=== PATIENT | female | born 1965 | race Caucasian/White ===

== ENCOUNTER 2018-10-02 01:50 | Outpatient (CLI) | payer BC, SELFPAY ==
--- NOTE | 2018-10-02 10:15 | DI.MAMMO_ITS ---
SYMPTOM/DIAGNOSIS: SCREENING, Z12.31 MAMMOGRAMS: Mammograms were interpreted according to the usual protocol including computer analysis with CAD system, tomosynthesis and C view imaging. Comparison is made with exams from 1257-3609. The breasts are composed of heterogeneously dense fibroglandular tissue, breast density, Category C. No suspicious masses or suspicious microcalcifications are seen. There has been no significant change. IMPRESSION: Category 1, negative mammogram. Yearly screening mammography is recommended. [facility] ASSESSMENT OF FINDINGS: Negative. Category 1. Patient will receive a letter notifying them of these results. Bi-RADS category C. The breasts are heterogeneously dense, which may obscure small masses.
== END 2018-10-02 02:10 ==
PROVIDERS: PCP Emergency Medicine; Visit Provider Emergency Medicine
DX: Z12.31 Encounter for screening mammogram for malignant neoplasm of breast (principal)
CPT/HCPCS: 77063; 77067

== ENCOUNTER 2019-10-09 07:59 | Outpatient (CLI) | payer BC, SELFPAY ==
[2019-10-12 18:38] LABS: SARS-CoV-2 RNA Undetected (Undetected); SARS-CoV-2 Specimen Source Nasopharynx
== END 2019-10-09 08:19 ==
PROVIDERS: PCP Emergency Medicine; Visit Provider Emergency Medicine
DX: Z11.59 Encounter for screening for other viral diseases (principal)
CPT/HCPCS: U0003

== ENCOUNTER 2020-07-09 03:17 | Outpatient (CLI) | payer BC, SELFPAY ==
[2020-07-09 12:51] LABS: Abs Immature Grans 0.01 10^3/uL (0.0-0.06); Absolute Basophil Count 0.02 10^3/uL (0.0-0.2); Absolute Eosinophil Count 0.15 10^3/uL (0.0-0.7); Absolute Lymphocyte Count 2.08 10^3/uL (1.2-3.4); Absolute Monocyte Count 0.44 10^3/uL (0.1-0.8); Absolute Neutrophil Count 3.72 10^3/uL (1.2-6.7); Basophils % 0.3; Eosinophils % 2.3; HCT 42.1 % (36.0-46.0); Immature Grans % 0.2; Lymphocytes % 32.4; MCH 31.2 pg (27.0-33.0); MCHC 33.3 % (32.0-36.0); MCV 93.8 fL (80-95); MPV 10.1 fL (8.0-11.0); Monocytes % 6.9; Neutrophils % 57.9; Nucleated RBC 0 %; Platelet Count 365 10^3/uL (130-400); RBC 4.49 10^6/uL (3.93-5.22); RDW 12.4 % (11.7-14.6); RDW-SD 42.7 fL; WBC 6.42 10^3/uL (4.4-10.8)
[2020-07-09 13:08] LABS: Anion Gap 5.5 mmol/L (3-11); BUN 17 mg/dL (7-18); CO2 28.5 mmol/L (21.0-32.0); CREATININE 0.8 mg/dL (0.55-1.02); Calcium 9.2 mg/dL (8.5-10.1); Calculated LDL 216 mg/dL (<100); Chloride 103 mmol/L (98-107); Cholesterol 310 mg/dL (<200); Glucose 115 mg/dL (74-106); HDL Cholesterol 57 mg/dL (40-60); Potassium 4.2 mmol/L (3.5-5.1); Sodium 137 mmol/L (136-145); TSH (W/Ref FT4) 2.85 uIU/mL (0.36-3.74); Triglyceride 187 mg/dL (<150)
[2020-07-09 13:11] LABS: Hemoglobin A1C 5.6 % (<5.7)
== END 2020-07-09 03:18 | disposition home or self-care (01) ==
LOC: LOS 03:18
PROVIDERS: Physician Assistant; PCP Emergency Medicine; Visit Provider Nurse Practitioner Family
DX: R63.5 Abnormal weight gain (principal)
CPT/HCPCS: 36415; 80048; 80061; 83036; 84443; 85025

== ENCOUNTER 2020-07-21 02:06 | Outpatient (CLI) | payer BC, SELFPAY ==
--- NOTE | 2020-07-21 16:23 | DI.MAMMO_ITS ---
EXAM: MG MAMMO SCREENING CLINICAL HISTORY: screening.Z12.39. TECHNIQUE: Bilateral full field digital CC and MLO mammographic images were obtained with 3D tomosyn thesis and utilizing computer aided detection (CAD). COMPARISON: Prior mammograms dating back to 2011, the most recent being September 2018. FINDINGS: There are no new spiculated masses nor malignant appearing microcalcification groups. There is no significant architectural distortion nor skin thickening-retraction. IMPRESSION: No radiographic evidence of malignancy. BI-RADS Category 1 - Negative Breast Density - Category B - Scattered areas of fibroglandular density Breast density Category C or D implies that the patient has dense breast tissue. Dense breast tissue can make it harder to find cancer on a mammogram. Dense breast tissue is also associated with an incr eased risk of breast cancer. This information about the result of the mammogram report was provided to the patient to raise their awareness. Use this report when you speak with the patient about their risks for breast cancer, which includes their family history. At that time, you may recommend additional screening tests (Ultrasoun d or MRI) as these tests may add significant information. A negative radiographic report should not delay biopsy if a dominant or clinically suspicious mass is present. Up to ten percent of cancers are not identified on mammography. A negative report may reinforce clinical impression. Adenosis and dense breasts may obscure an underlying neoplasm. False positive reports average 6 to 10%. Patient will receive a letter notifying them of these results.
== END 2020-07-21 02:26 ==
PROVIDERS: PCP Emergency Medicine; Visit Provider Nurse Practitioner Family
DX: Z12.31 Encounter for screening mammogram for malignant neoplasm of breast (principal)
CPT/HCPCS: 77063; 77067

== ENCOUNTER 2020-09-27 09:41 | Emergency (ER) | payer BC, SELFPAY ==
[2020-09-27 09:41] VITALS: PULSE 76; RESP 16; O2SAT 96
--- NOTE | 2020-09-27 09:45 | DI.CT_ITS ---
Exam(s) CT HEAD WO EXAM: CT HEAD WO CLINICAL HISTORY: dizzy/HOOKER. TECHNIQUE: Imaging Protocol: Axial computed tomography images with coronal and sagittal reformatted images were created and reviewed COMPARISON: No exams were available for comparison FINDINGS: There are no skull fractures nor fluid in the visualized paranasal sinuses. There is no evidence of intracranial hemorrhage, mass effect, or shift of midline structures. There are no extra-axial fluid collections. The ventricles are not enlarged or shifted and there is no blo od within the ventricular system nor within the basal cisterns. IMPRESSION: No acute intracranial findings on this noninfused CT scan of the brain. RADIATION DOSE DELIVERED: 760.2mGy.cm Total DLP DATA REPOSITORY: All CT scans at this facility are submitted to the National Radiology Data Registry (NRDR) Dose Index Registry (DIR) with the [employer] (ACR). RADIATION OPTIMIZATION: All CT scans at this facility use at least one of these dose optimization te chniques: automated exposure control; mA and/or kV adjustment per patient size (includes targeted exa ms where dose is matched to clinical indication); or iterative reconstruction.
--- NOTE | 2020-09-27 09:45 | RT.EKG_ITS ---
APPROVED REPORT Exam: Resting ECG Reason for Exam: dizzy Patient Location: E HR:79 bpm ECG Measurements Heart Rate 79 AXIS KS 178 P 39 QRSd 90 QRS 31 QT 427 T 31 QTc 489 Conclusion Sinus rhythm. nonspecific st chages
[2020-09-27 10:02] VITALS: BP 160/87; PULSE 74; PULSE 75; RESP 19; O2SAT 89
[2020-09-27] MEDS: diazePAM 10 MG/2 ML SYR 5 MG IVP (10:14)
[2020-09-27] MEDS: Meclizine 25 MG TAB PO ×2 (10:14→12:07)
[2020-09-27 10:17] LABS: Abs Immature Grans 0.05 10^3/uL (0.0-0.06); Absolute Basophil Count 0.02 10^3/uL (0.0-0.2); Absolute Lymphocyte Count 1.01 10^3/uL (1.2-3.4); Absolute Monocyte Count 0.28 10^3/uL (0.1-0.8); Absolute Neutrophil Count 6.06 10^3/uL (1.2-6.7); Basophils % 0.3; HCT 40.6 % (36.0-46.0); HGB 13.6 g/dL (11.2-15.7); Immature Grans % 0.7; Lymphocytes % 13.6; MCH 31.2 pg (27.0-33.0); MCHC 33.5 % (32.0-36.0); MCV 93.1 fL (80-95); Monocytes % 3.8; Neutrophils % 81.6; Nucleated RBC 0 %; Platelet Count 336 10^3/uL (130-400); RBC 4.36 10^6/uL (3.93-5.22); RDW-SD 41.5 fL; WBC 7.42 10^3/uL (4.4-10.8)
--- NOTE | 2020-09-27 10:24 | W.ED.GENAD ---
Discharge Plan Disposition Patient Disposition: HOME Condition: Stable Discharge Details Clinical Impression: Dizziness, Vertigo Primary Care Provider: Terell Collazo ED Provider: Jared Hylton Home Meds and New Rx's Prescriptions: New meclizine 25 mg tablet 25 mg PO TID PRNQty: 14 RF: 0 ondansetron HCl [Zofran] 4 mg tablet 4 mg PO Q8H PRNQty: 10 RF: 0 Continued melatonin 3 mg capsule 9 mg PO HS PRNRF: 0 polyethylene glycol 3350 17 gram/dose powder 238 g PO ONCE Qty: 238 RF: 0 bisacodyl [Dulcolax (bisacodyl)] 5 mg tablet,delayed release (DR/EC) 5 mg PO ONCE Qty: 4 RF: 0 Banatrol Plus Powder In Packet 1 packet PO DAILY AM Qty: 75 RF: 0 pravastatin 40 mg tablet 40 mg PO QHS Qty: 90 RF: 3 levothyroxine 50 mcg tablet 50 mcg PO DAILY Qty: 90 RF: 3 ibuprofen 600 MG tablet 600 mg PO TID Qty: 60 RF: 2 tylenol 500 mg PRN RF: 0 Discharge Instructions Instructions: Dizziness (ED), Vertigo (ED) Additional Instructions: Zofran and meclizine as directed. Please watch for new or worsening symptoms and return to the ER for any concerns. I am giving you a referral to PT to discuss the Nimco maneuver, contact them on Tuesday if symptoms are persisting. I also recommend reaching out your primary care provider on Tuesday to discuss ER visit ongoing symptoms, outpatient referral to neurology and/or MRI may be indicated if symptoms are persisting Stand Alone Forms: Physical Therapy Referral Medical Decision Making 55-year-old female with past medical history of hypothyroidism, hyperlipidemia, presents to the ER via EMS for global headache 4 out of 10, sensation of the room spinning, made worse with movement of her eyes or head, and nausea with vomiting. Clinically she appears neurologically intact, does have mild nystagmus, prefers to perform HPI and examination with her eyes closed. No fever, evidence of nuchal rigidity, focal neurologic deficit. Symptoms intermittent 7 or 8 times over the past few weeks but now fairly steady since around 230 this morning. Examination is most suspicious for vertigo, would like to obtain IV access, give IV fluid, Valium, p.o. meclizine, obtain work-up including troponin, EKG, CBC, CMP, TSH with free T4, head CT. Examination less likely consistent with infectious process, trauma, arrhythmia, TIA-CVA, etc. but would like to exclude these through a thorough work-up. Patient and are comfortable with this plan and has no additional questions or concerns. Initial laboratory values are unremarkable for obvious emergent process. Awaiting CT imaging. Upon reevaluation patient reports that her headache has almost resolved, her nausea has resolved completely, she no longer feels shaky or weakness. She states that with her eyes closed and no movement of her head she has no dizziness whatsoever. She is hesitant to trial her eyes open or head movement. Will await CT imaging and then attempt to further assess the patient with movement. Patient does specifically state that when she contacted her provider registered nurse practitioner today they discussed the potential of an Nimco's maneuver. We discussed this may be appropriate, I can certainly refer her to neurology and physical therapy as our physical therapy team typically performs Nimco maneuver. CT resulted and unremarkable. I once again spoke with patient and her . She reports that her headache is resolved, her nausea is almost resolved. She states that her dizziness in general is improving but not gone. When she opens her eyes, moves, etc. she states that her nausea and vomiting do return but not as severe as when she initially presented. She would like to use the restroom that she is concerned about ambulating at this time. Instead she would prefer to use a bedpan, I will give her another dose of Antivert and Valium and then once again reassess. Patient was able to give a urine sample without difficulty. Upon reevaluation at approximately 1300, she feels as though her nausea and dizziness has essentially plateaued and now she is more focused on her dull global headache. We once again discussed our options, she remains neurologically intact. She appears to be in no acute distress. Will provide Toradol, Benadryl and Reglan and once again will reassess. Upon reevaluation at 1415 patient is now resting comfortably with her eyes wide open. Reports that she is completely asymptomatic. Denies any headache, dizziness, nausea, weakness, shaking. We discussed her overall evaluation here in the ER and disposition. Patient is comfortable discharge home. I will provide a prescription for meclizine and Zofran. I will also give her a referral to PT so they may perform the Nimco maneuver if her symptoms are persisting. Otherwise she will return to the ER for new or worsening symptoms. Lastly, she will reach out to her primary care provider on Tuesday to discuss her ER visit and ongoing symptoms. We discussed that outpatient MRI and/or referral to neurology may be indicated if symptoms were to persist. Upon discharge she ambulates steadily. And without nystagmus. Is neurologically intact. Completely asymptomatic Medical Records Medical records reviewed: Yes I reviewed the patient's medical records. Imaging Data Radiologic Study: Attestation: I personally reviewed and interpreted this imaging study as follows: Imaging: CT Scan Radiologist's impression: [facility] Preliminary Radiology Report Call: [phone] assistance Online chat: [email or web address] Patient Name: TALIB WOODS Institution Name: [place] [address] Study Type: CT HEAD WO Ordered As: CT HEAD WO Date of Dictation: 27 Sep 2020 EDT Date of Exam: 27 Sep 2020 EDT Account Number: Patient : [id number] Patient Location: er Pasting Inspector: Referring Physician: Jared HYLTON This interpretation is based upon the receipt of 968 images. CAUSTIC CRESYLATE SHIFT SUPERINTENDENT (QA) DISCREPANCY? If there is a discrepancy between the preliminary and final interpretation, please notify [employer] via [email or web address]. If you do not have access to our QA portal, call our QA team at [phone] CONFIDENTIALITY STATEMENT This report is intended only for the use of the referring physician, and only in accordance with law, If you received this in error, call [phone] Page 1 of 1 PROCEDURE INFORMATION: Exam: CT Head Without Contrast Exam date and time: 09/27/2020 10:02 AM Age: 55 years old Clinical indication: Other: Dizzy, headache TECHNIQUE: Imaging protocol: Computed tomography of the head without contrast. COMPARISON: No relevant prior studies available. FINDINGS: Brain: Normal. No hemorrhage. Unremarkable white matter. No mass effect. Cerebral ventricles: No ventriculomegaly. Paranasal sinuses: Visualized sinuses are unremarkable. No fluid levels. Mastoid air cells: Visualized mastoid air cells are well aerated. Bones/joints: Unremarkable. No acute fracture. Soft tissues: Unremarkable. IMPRESSION: No acute intracranial abnormality. Thank you for allowing us to participate in the care of your patient. Dictated and Authenticated by: Lorna Cox MD 09/27/2020 11:46 AM Eastern Time ([place] & [place]) ECG Data Attestation: I personally reviewed and interpreted this ECG (s) as follows: Interpretation: Please see official report by Dr. Rose. Sinus rhythm, ventricular rate of 79. No STEMI. HPI General Mode of arrival: EMS. Date/Time Provider Initiated Documentation: 09/27/20 09:44. Limitations to Documentation: no limitations. Information obtained by: patient, family and EMS. HPI Narrative: This is a 55-year-old female, past medical history of hypothyroidism, hyperlipidemia, presenting to the ER via EMS for chief complaint of dizziness. Patient reports that she went to bed last night asymptomatic, woke up this morning around 2:30 AM, reported global 4 out of 10 headache, nausea, vomiting, generalized weakness, dizziness like the room was spinning. Movement of her head or eyes made the symptoms worse. EMS called, evaluated on scene, not transported at that time. Patient states that throughout the morning her headache was as severe as an 8 out of 10 but is again now a 4 out of 10. Nausea and vomiting continues, feels like she cannot hold anything down, dizziness not resolving. EMS called again at this time decided to transport. She was given IV fluid and Zofran by EMS in route to the ER. Denies recent illness or trauma. Denies visual changes. Patient denies fever, neck pain, chest pain, shortness of breath, change in bowel or bladder function, numbness, tingling, focal weakness. She does report mild abdominal pain secondary to vomiting and dry heaving. She reports generalized weakness and she feels like her legs are shaky. Patient states that over the past few weeks she felt like her ears may be clogged, did have brief episodes of similar dizziness, 7 or 8 times over the past few weeks. Because the dizziness resolved spontaneously she never did have this evaluated. Related Data Home Medications Medication Instructions Recorded Confirmed ibuprofen 600 mg PO TID #60 tab-cap 06/19/13 09/25/20 levothyroxine 50 mcg tablet 50 mcg PO DAILY #90 tab-cap 07/14/20 09/25/20 pravastatin 40 mg tablet 40 mg PO QHS #90 tab 07/14/20 09/25/20 banana 1 packet PO DAILY AM #75 ea 09/25/20 09/25/20 flakes-transgalactooligosaccharide oral powder packet bisacodyl 5 mg tablet,delayed 5 mg PO ONCE #4 tab 09/25/20 release melatonin 3 mg capsule 9 mg PO HS PRN cap 09/25/20 09/25/20 polyethylene glycol 3350 17 238 g PO ONCE #238 g 09/25/20 gram/dose oral powder meclizine 25 mg PO TID PRN #14 tab 09/27/20 ondansetron HCl [Zofran] 4 mg PO Q8H PRN #10 tab 09/27/20 Previous Rx's Medication Instructions Recorded levothyroxine 50 mcg tablet 50 mcg PO DAILY #90 tab-cap 07/14/20 pravastatin 40 mg tablet 40 mg PO QHS #90 tab 07/14/20 banana 1 packet PO DAILY AM #75 ea 09/25/20 flakes-transgalactooligosaccharide oral powder packet bisacodyl 5 mg tablet,delayed 5 mg PO ONCE #4 tab 09/25/20 release polyethylene glycol 3350 17 238 g PO ONCE #238 g 09/25/20 gram/dose oral powder meclizine 25 mg PO TID PRN #14 tab 09/27/20 ondansetron HCl [Zofran] 4 mg PO Q8H PRN #10 tab 09/27/20 Allergies Allergy/AdvReac Type Severity Reaction Status Date / Time latex Allergy Severe Anaphylaxsi Verified 07/14/20 17:04 s Penicillins Allergy Unknown unknown Verified 07/14/20 17:04 sulfite AdvReac Severe Headaches Verified 07/14/20 17:04 grass pollen-perennial rye, AdvReac Intermediate itching, Verified 09/25/20 14:45 standar rash General Stated Complaint: Nausea/Vomit/Diar NANCY: 3 Review of Systems Constitutional Constitutional: Denies fatigue, Denies fever(s) and Reports headache(s) Eyes Eyes: Denies blurry vision, Denies change in vision and Denies diplopia ENT Ears, Nose, Mouth, and Throat: Reports headache(s) and Denies neck pain Cardiovascular Cardiovascular: Denies chest pain and Denies dyspnea Respiratory Respiratory: Denies cough and Denies dyspnea Gastrointestinal Gastrointestinal: Reports abdominal pain, Reports nausea and Reports vomiting Genitourinary Genitourinary: Denies dysuria Musculoskeletal Musculoskeletal: Denies back pain, Denies muscle weakness, Denies neck pain, Denies numbness and Denies tingling Integumentary/Breasts Skin/Breast: Denies rash Neurologic Neurologic: Reports headache(s), Denies numbness, Denies tingling and Reports weakness (Generalized) Endocrine Endocrine: Denies fatigue Hematologic/Lymphatic Hematologic/Lymphatic: Denies easy bleeding and Denies easy bruising PFSH Medical History Hyperlipidemia Surgical History Abdominal hysterectomy (08/24/17) JAYDA/BSO for fibroid uterus. aoc section X 2 Cholecystectomy Family History Mother Skin cancer Arthritis IBS (irritable bowel syndrome) Social History Smoking/Tobacco Use Status: Never Second Hand Exposure: Yes Smoking risk assessment performed?: Yes Alcohol Intake: current Alcohol Intake frequency: a few times a week Alcohol type: wine Drug use: Never Household members: spouse Housing: house Do you need help understanding health information?: Never Pets and animals: Yes Pets and animals: dog(s) Sexually active: No Do you think of yourself as: straight/heterosexual Current gender identity: male What is your relationship status?: How often do you talk on the phone with friends or family?: three or more times per week How often do you get together with friends or relatives?: three or more times per week How often do you attend cheondoism or orthodoxy services?: decline to answer Do you belong to any clubs or organized social groups?: yes Panel score (0-1 are the most socially isolated patients): 3 What type of physical activity do you participate in: walking Duration: 45-60 minutes/day Frequency: 3-4 times per week Makayla/Protestant: No preference Special makayla needs: No Seatbelt use: always Helmet use: Yes Helmet use: always Drive intox or ride w/intox otr company truck driver: No Do you feel safe in your relationship?: Yes Exam Const General: cooperative, healthy appearing and other (Patient keeps her eyes closed during the HPI and most examined) Orientation: alert, awake and oriented x3 HENMT Head: normal to inspection, normocephalic and atraumatic Ears: external ears normal, TM's normal bilaterally and EAC's normal General nose exam: external nose normal Face and sinus: normal facial exam Mouth: moist mucous membranes Throat: posterior oropharynx normal Eyes General: appearance normal, both eyes and all related structures Alignment and Position: alignment normal Periorbital: periorbital findings normal Eyelids: eyelids normal Conjunctivae: conjunctivae normal Sclera: sclerae normal Cornea: corneas normal Pupils: PERRL EOM: EOM intact bilaterally and nystagmus (Minimal right to left ) Direct ophthalmoscopy: normal light reflex Neck Neck: normal visual inspection, full ROM, trachea midline and supple Resp Effort & Inspection: normal respiratory effort and able to speak in complete sentences Auscultation: clear to auscultation bilaterally Cardio Rate: regular rate Rhythm: regular rhythm GI Palpation: soft and nontender Back/Spine/Pelvis Back: No back tenderness Skin General skin exam: no rashes or lesions noted Neuro General: patient alert, patient awake, patient oriented x3, moves all extremities and no focal motor deficits Cranial Nerves: CN's II-XI intact bilaterally Cognition: normal cognition Speech: speech normal Gait: normal gait Motor: muscle tone normal throughout, strength 5/5 throughout, no pronator drift, no movement abnormalities noted and no fasciculations Sensory Exam: no sensory deficits noted Coordination: [id number] test normal and Does not sway with eyes open Extrem General: normal to inspection, full ROM, capillary refill normal and no calf tenderness Psych Appearance: grossly normal Mental Status: mental status grossly normal Course Vital Signs Vital signs: Vital Signs Pulse 76 09/27/20 09:41 Respiratory Rate 16 09/27/20 09:41 Pulse Oximetry 96 09/27/20 09:41 Pulse 76 09/27/20 09:41 Respiratory Rate 16 09/27/20 09:41 Respiratory Effort 09/27/20 09:44 Blood Pressure Position Sitting 09/27/20 09:41 Pulse Oximetry 96 09/27/20 09:41 Oxygen Delivery Method Room Air 09/27/20 09:41 Oxygen Flow Rate 0 06/19/21 09:41 Pain Level 4 09/27/20 09:41 Lab/Test Results Lab/Test Results: Laboratory Tests Range/Units 09/27/20 09:50 WBC (4.4-10.8) 10^3/uL 7.42 RBC (3.93-5.22) 10^6/uL 4.36 Hgb (11.2-15.7) g/dL 13.6 Hct (36.0-46.0) % 40.6 MCV (80-95) fL 93.1 MCH (27.0-33.0) pg 31.2 MCHC (32.0-36.0) % 33.5 RDW (11.7-14.6) % 12.0 Plt Count (130-400) 10^3/uL 336 MPV (8.0-11.0) fL 10.0 Immature Gran % 0.7 Neutrophils % 81.6 Lymphocytes % 13.6 Monocytes % 3.8 Eosinophils % 0.0 Basophils % 0.3 Nucleated RBC % % 0 Absolute Neutrophils (1.2-6.7) 10^3/uL 6.06 Absolute Lymphocytes (1.2-3.4) 10^3/uL 1.01 L Absolute Monocytes (0.1-0.8) 10^3/uL 0.28 Absolute Eosinophils (0.0-0.7) 10^3/uL 0.00 Absolute Basophils (0.0-0.2) 10^3/uL 0.02
[2020-09-27 10:31] LABS: ALT 48 U/L (14-59); AST 21 U/L (15-37); Albumin 4.2 g/dL (3.4-5.0); Alkaline Phosphatase 64 U/L (46-116); Anion Gap 10.8 mmol/L (3-11); BUN 14 mg/dL (7-18); Bilirubin, Total 0.6 mg/dL (0.2-1.0); CO2 26.2 mmol/L (21.0-32.0); CREATININE 0.7 mg/dL (0.55-1.02); Calcium 8.9 mg/dL (8.5-10.1); Chloride 103 mmol/L (98-107); Glucose 134 mg/dL (74-106); Potassium 3.8 mmol/L (3.5-5.1); Sodium 140 mmol/L (136-145); TSH (W/Ref FT4) 2.56 uIU/mL (0.36-3.74); Total Protein 7.6 g/dL (6.4-8.2); Troponin I < 0.05 ng/mL (<0.06)
--- NOTE | 2020-09-27 11:46 | DI.VRAD_ITS ---
PROCEDURE INFORMATION: Exam: CT Head Without Contrast Exam date and time: 09/27/2020 10:02 AM Age: 55 years old Clinical indication: Other: Dizzy, headache TECHNIQUE: Imaging protocol: Computed tomography of the head without contrast. COMPARISON: No relevant prior studies available. FINDINGS: Brain: Normal. No hemorrhage. Unremarkable white matter. No mass effect. Cerebral ventricles: No ventriculomegaly. Paranasal sinuses: Visualized sinuses are unremarkable. No fluid levels. Mastoid air cells: Visualized mastoid air cells are well aerated. Bones/joints: Unremarkable. No acute fracture. Soft tissues: Unremarkable. IMPRESSION: No acute intracranial abnormality. Dictated and Authenticated by: Lorna Cox MD. Ordering:YENNY Coleman MD
[2020-09-27 11:50] VITALS: BP 141/86; PULSE 78; PULSE 81; RESP 16; O2SAT 97
[2020-09-27] MEDS: Normal Saline 1,000 ML 1000 ML IV (12:07)
[2020-09-27] MEDS: diazePAM 10 MG/2 ML SYR 2 MG IVP (12:07)
[2020-09-27] MEDS: diphenhydrAMINE 50 MG/ML VIAL IVP (13:15)
[2020-09-27] MEDS: Metoclopramide 10 MG/2 ML VIAL IVP (13:15)
[2020-09-27] MEDS: Ketorolac 30 MG/ML VIAL IVP (13:15)
[2020-09-27 14:44] VITALS: BP 132/75; PULSE 87; RESP 16; TEMP 36.8; O2SAT 98
== END 2020-09-27 14:45 | disposition home or self-care (01) ==
PROVIDERS: Emergency Provider Physician Assistant; PCP Emergency Medicine
DX: R42 Dizziness and giddiness (principal)
CPT/HCPCS: 36415; 80053; 93005; 96361; 96374; 96375; 99284; 70450; 84443; 84484; 85025; 93010; J1200; J1885; J2765; J3360

== ENCOUNTER 2020-12-02 13:54 | Outpatient (CLI) | payer BC, SELFPAY ==
--- NOTE | 2020-12-02 13:45 | RT.EKG_ITS ---
APPROVED REPORT Exam: Resting ECG Reason for Exam: dizziness Patient Location: O HR:64 bpm ECG Measurements Heart Rate 64 AXIS MN 179 P 54 QRSd 81 QRS 25 QT 435 T 37 QTc 448 Conclusion Unknown rhythm, irregular rate...V-rate 57-110, variation>10% Sinus Rhythm Occasional Premature Atrial Contractions Normal Electrocardiogram
== END 2020-12-02 13:55 | disposition home or self-care (01) ==
LOC: DI.CM 13:56
PROVIDERS: PCP Emergency Medicine; Visit Provider Physician Assistant
DX: R42 Dizziness and giddiness (principal)

== ENCOUNTER 2020-12-02 19:11 | Outpatient (REF) | payer BC, SELFPAY ==
[2020-12-04 17:01] LABS: COVID-19 RT-PCR UVMMC Result Negative (Negative)
== END 2020-12-02 19:12 | disposition home or self-care (01) ==
LOC: LBN 19:11
PROVIDERS: PCP Emergency Medicine; Visit Provider Physician Assistant
DX: Z20.822 Contact with and (suspected) exposure to COVID-19 (principal); R42 Dizziness and giddiness
CPT/HCPCS: U0003

== ENCOUNTER 2021-08-03 02:55 | Outpatient (CLI) | payer BC, SELFPAY ==
--- NOTE | 2021-08-03 16:08 | DI.MAMMO_ITS ---
Exam(s) MAMMO SCREENING EXAM: MAMMO SCREENING CLINICAL HISTORY: screening,Z12.39 TECHNIQUE: Bilateral full field digital CC and MLO mammographic images were obtained with 3D tomosyn thesis and utilizing computer aided detection (CAD). COMPARISON: Available for comparison. FINDINGS: Masses/Architectural Distortion: None seen. Microcalcifications: No suspicious pleomorphic-type are seen. Skin Thickening/Nipple Retraction: None. IMPRESSION: 1. No significant interval change with no specific features of malignancy noted. 2. Unless there is more urgent need, screening mammography is recommended, as per [employer] guidelines. BI-RADS Category 1 - Negative Breast Density - Category C - Heterogeneously dense Breast density category C or D implies that the patient has dense breast tissue. Dense breast tissue is very common and is not abnormal but dense breast tissue can make it harder to find cancer on a ma mmogram. Also, dense breast tissue may increase their breast cancer risk. This information about the result of the mammogram report was provided to the patient to raise their awareness. Use this report when you speak with the patient about their risks for breast cancer, which includes their family hist ory. At that time, you may recommend for more screening tests (Ultrasound or MRI) as they might be us eful based on their risk. A negative radiographic report should not delay biopsy if a dominant or clinically suspicious mass is present. Up to ten percent of cancers are not identified on mammography. A negative report may reinforce clinical impression. Adenosis and dense breasts may obscure an underlying neoplasm. False positive reports average 6 to 10%. Patient will receive a letter notifying them of these results.
== END 2021-08-03 03:15 ==
PROVIDERS: PCP Family Medicine; Visit Provider Nurse Practitioner Family
DX: Z12.31 Encounter for screening mammogram for malignant neoplasm of breast (principal)
CPT/HCPCS: 77063; 77067

== ENCOUNTER 2021-08-19 01:11 | Outpatient (CLI) | payer BC, SELFPAY ==
[2021-08-19 14:13] LABS: Calculated LDL 196 mg/dL (<100); Cholesterol 301 mg/dL (<200); HDL Cholesterol 60 mg/dL (40-60); TSH (W/Ref FT4) 2.38 uIU/mL (0.36-3.74); Triglyceride 225 mg/dL (<150)
== END 2021-08-19 01:12 | disposition home or self-care (01) ==
LOC: LOS 01:12
PROVIDERS: PCP Family Medicine; Visit Provider Family Medicine
DX: E03.9 Hypothyroidism, unspecified (principal); E78.5 Hyperlipidemia, unspecified; Z00.00 Encounter for general adult medical examination without abnormal findings
CPT/HCPCS: 36415; 80061; 84443

== ENCOUNTER 2022-06-15 14:05 | Emergency (ER) | payer BC, SELFPAY ==
[2022-06-15] VITALS (35 sets, daily range): BP systolic 143–168; BP diastolic 75–130; PULSE 62–77; RESP 14–21; TEMP 37.1; O2SAT 95–100
--- NOTE | 2022-06-15 14:15 | RT.EKG_ITS ---
APPROVED REPORT Exam: Resting ECG Reason for Exam: palpitations Patient Location: E HR:60 bpm ECG Measurements Heart Rate 60 AXIS MS 191 P 36 QRSd 90 QRS 17 QT 425 T 29 QTc 435 Conclusion Sinus rhythm...normal P axis, V-rate 60- 99 Ventricular premature complex...V complex w/ short R-R interval sinus rhythm, normal axis, normal intervals, likely PAC
--- NOTE | 2022-06-15 14:33 | DI.RAD_ITS ---
Exam(s) XR CHEST 2V PA LATERAL EXAM: XR CHEST 2V PA LATERAL CLINICAL HISTORY: chest pain. TECHNIQUE: 2D digital imaging was performed. COMPARISON: No exams were available for comparison FINDINGS: 2 views: Heart size is normal. The mediastinum is not widened. Lungs are clear. No infiltrates nor pleural effusions. IMPRESSION: No acute pulmonary findings. DATA REPOSITORY: RADIATION DOSE DELIVERED:
--- NOTE | 2022-06-15 14:34 | ED.GENADUL_ITS ---
Discharge Plan Disposition Patient Disposition: Home Condition: Improving Discharge Details Chief Complaint: SOB Clinical Impression: Chest pain, PAC (premature atrial contraction) Primary Care Provider: Aileen Murphy ED Provider: Karsten Roberts Home Meds and New Rx's Prescriptions: No Action Shingrix (PF) 50 mcg/0.5 mL suspension for reconstitution 0.5 ml IM ONCE Qty: 1 0RF atorvastatin 20 mg tablet 20 mg PO DAILY Qty: 90 3RF levothyroxine 50 mcg tablet 50 mcg PO DAILY Qty: 90 3RF tylenol 500 mg PRN 0RF Advil PM 200-38 mg Tablet 2 tab PO HS Discharge Instructions Instructions: Chest Pain (ED) Additional Instructions: Please follow-up with your primary care physician for further cardiac evaluation. Please return to the emergency department for any worsening symptoms. Medical Decision Making 57-year-old female history of hyperlipidemia hypothyroidism presents with anterior chest pain and mild shortness of breath began within the last hour, patient feels intermittent palpitations over the past several weeks noted to be hypertense on arrival normal sinus rhythm with intermittent PACs noted, EKG nonischemic no history of coronary disease or thromboembolic disease no exogenous estrogen use, calm cooperative no respiratory distress. Of note patient endorses being under recent stress with regards to the health of her elderly mother and the of her father within the last year. Must consider symptomatic PACs versus ACS versus stress versus musculoskeletal lower suspicion for pneumothorax PE or aortic pathology. Must also consider thyroid dyscrasia. Will obtain basic labs electrolytes TSH T4 EKG chest x-ray, prophylactic aspirin disposition pending lab work reassessment of symptoms and x-ray results. 18: 12 patient resting comfortably chest pain-free. 2 troponins negative. Intermittent PACs on monitor. Patient will follow with her primary care physician for further cardiac work-up as an outpatient. Given home care instructions and return precautions. HPI General Date/Time Provider Initiated Documentation: 06/15/22 14:10 . HPI Narrative: 57-year-old female history of hyperlipidemia hypothyroidism, presents referred in by Dr. Ross of general surgery, during a screening visit to prepare for colonoscopy patient was noted to be hypertense was endorsing some palpitations and shortness of breath. Patient denies history of coronary artery disease or thromboembolic disease. Denies exogenous estrogen use. Does endorse stress in her life specifically her recently ill elderly mother. Related Data Home Medications Medication Instructions Recorded Confirmed atorvastatin 20 mg tablet 20 mg PO DAILY #90 tabs 08/21/21 06/15/22 levothyroxine 50 mcg tablet 50 mcg PO DAILY #90 tab-caps 08/21/21 06/15/22 ibuprofen-diphenhydramine citrate 2 tab PO HS 06/15/22 06/15/22 200 mg-38 mg tablet (Advil PM) Previous Rx's Medication Instructions Recorded atorvastatin 20 mg tablet 20 mg PO DAILY #90 tabs 08/21/21 levothyroxine 50 mcg tablet 50 mcg PO DAILY #90 tab-caps 08/21/21 Allergies Allergy/AdvReac Type Severity Reaction Status Date / Time latex Allergy Severe Anaphylaxsi Verified 06/15/22 14:24 s Penicillins Allergy Unknown unknown Verified 06/15/22 14:24 sulfite AdvReac Severe Headaches Verified 06/15/22 14:24 grass pollen-perennial rye, AdvReac Intermediate itching, Verified 06/15/22 14:24 standar rash General Stated Complaint: SOB NANCY: 3 Review of Systems Narrative: Review of Systems Constitutional: negative Eyes: negative ENT: negative Cardiovascular: Chest pain Respiratory: Shortness of breath Gastrointestinal: negative : negative Musculoskeletal: negative Skin: negative Neurologic: negative Psych: negative PFSH All Active Problems (Updated 06/15/22 @ 18:13 by Karsten Roberts MD) Chest pain (Acute) PAC (premature atrial contraction) (Acute) Screening for colon cancer (Acute) Morbid obesity with BMI of 40.0-44.9, adult (Acute) Hyperlipidemia (Acute) Acquired hypothyroidism (Acute 07/12/14) Surgical History (Updated 08/21/21 @ 14:27 by Aileen Murphy MD) section X 2 Cholecystectomy S/P total hysterectomy and BSO (bilateral salpingo-oophorectomy) (~2018) Family History (Updated 08/21/21 @ 14:35 by Aileen Murphy MD) Mother Skin cancer Arthritis IBS (irritable bowel syndrome) Father CLL (chronic lymphocytic leukemia) Dementia Social History (Updated 08/24/21 @ 12:26 by Talisha Braga) Smoking/Tobacco Use Status: Never Second Hand Exposure: Yes Smoking risk assessment performed?: Yes Alcohol Intake: current Alcohol Intake frequency: a few times a week Alcohol type: wine Drug use: Never Substance use type: does not use Caregiver/Support person: No Household members: spouse and children Housing: house Number of Children: 2 Communication Needs: None Education Level: master's degree Do you need help understanding health information?: Never 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 Pets and animals: Yes Pets and animals: dog(s) Sexually active: No Do you think of yourself as: straight/heterosexual Current gender identity: male and female What is your relationship status?: How often do you talk on the phone with friends or family?: three or more times per week How often do you get together with friends or relatives?: once per week How often do you attend jehovah's witness or jehovah's witness services?: 1-3 times per year Do you belong to any clubs or organized social groups?: no Panel score (0-1 are the most socially isolated patients): 2 What type of physical activity do you participate in: walking Duration: 15-30 minutes/day Frequency: 3-4 times per week Makayla/Baptist: No preference Special makayla needs: No Seatbelt use: always Helmet use: Yes Helmet use: always Drive intox or ride w/intox port cdl a driver: No Do you feel safe at home: Yes Do you feel safe in your relationship?: Yes Additional Social history: Enjoys knitting, baking, reading, gardening. Enjoys travel. Exam Narrative Exam Narrative: Physical Examination General: alert, awake, cooperative, resting comfortably, no acute distress HEENT: normocephalic, atraumatic; PERRL, EOM intact, conjunctiva normal; no nasal discharge; moist mucous membranes, oral and pharyngeal mucosa normal, tolerating secretions Neck: supple, trachea midline; full ROM Chest: normal to inspection Respiratory: normal respiratory effort, speaking in full sentences, clear to auscultation, no wheezing, rales or rhonchi Cardiac: regular rate, regular rhythm, S1S2 intact, no murmurs rubs or gallops GI: abdomen soft, non-tender, non-distended; no palpable mass or hepatosplenomegaly Skin: no lesions, rashes or trauma appreciated Neuro: AAOx3, normal speech, moving all extremities Psych: Appropriate mood and affect Course Vital Signs Vital signs: Vital Signs Temperature 37.1 C 06/15/22 14:20 Pulse 68 06/15/22 14:20 Respiratory Rate 17 06/15/22 14:20 Blood Pressure 153/130 H 06/15/22 14:20 Pulse Oximetry 99 06/15/22 14:20 Temperature 37.1 C 06/15/22 14:20 Temperature Source Oral 06/15/22 14:20 Pulse 75 06/15/22 14:21 Pulse 73 06/15/22 14:21 Respiratory Rate 14 06/15/22 14:21 Respiratory Effort Normal 06/15/22 14:26 Blood Pressure 153/130 H 06/15/22 14:21 Blood Pressure Mean 136 06/15/22 14:21 Blood Pressure Position Supine 06/15/22 14:20 Pulse Oximetry 98 06/15/22 14:21 Oxygen Delivery Method Room Air 06/15/22 14:20 Oxygen Flow Rate 0 06/15/22 14:20 Pain Level 0 06/15/22 14:20
[2022-06-15] MEDS: Aspirin 81 MG CHEW 324 MG CH (14:45)
[2022-06-15 14:51] LABS: Abs Immature Grans 0.02 10^3/uL (0.0-0.06); Absolute Basophil Count 0.03 10^3/uL (0.0-0.2); Absolute Eosinophil Count 0.22 10^3/uL (0.0-0.7); Absolute Lymphocyte Count 2.75 10^3/uL (1.2-3.4); Absolute Monocyte Count 0.52 10^3/uL (0.1-0.8); Absolute Neutrophil Count 4.73 10^3/uL (1.2-6.7); Basophils % 0.4; Eosinophils % 2.7; HCT 41.1 % (36.0-46.0); HGB 13.9 g/dL (11.2-15.7); Immature Grans % 0.2; Lymphocytes % 33.3; MCH 31.3 pg (27.0-33.0); MCHC 33.8 % (32.0-36.0); MCV 93 fL (80-95); Monocytes % 6.3; Neutrophils % 57.1; Platelet Count 317 10^3/uL (130-400); RBC 4.44 10^6/uL (3.93-5.22); RDW 12.1 % (11.7-14.6); RDW-SD 41.4 fL; WBC 8.27 10^3/uL (4.4-10.8)
[2022-06-15 15:19] LABS: ALT 50 U/L (14-59); AST 20 U/L (15-37); Albumin 4.5 g/dL (3.4-5.0); Alkaline Phosphatase 66 U/L (46-116); Anion Gap 8.3 mmol/L (3-11); BUN 14 mg/dL (7-18); Bilirubin, Total 0.7 mg/dL (0.2-1.0); CO2 29.7 mmol/L (21.0-32.0); CREATININE 0.7 mg/dL (0.55-1.02); Calcium 9.3 mg/dL (8.5-10.1); Chloride 102 mmol/L (98-107); Estimated GFR 101.44 (mL/min/1.73m2); Glucose 105 mg/dL (74-106); Magnesium 2.2 mg/dL (1.8-2.4); Potassium 3.7 mmol/L (3.5-5.1); Sodium 140 mmol/L (136-145); TSH (W/Ref FT4) 2.57 uIU/mL (0.36-3.74); Total Protein 7.8 g/dL (6.4-8.2); Troponin I < 50 ng/L (<or=60)
[2022-06-15 17:45] LABS: Troponin I < 50 ng/L (<or=60)
== END 2022-06-15 18:32 | disposition home or self-care (01) ==
PROVIDERS: Emergency Provider Emergency Medicine; PCP Family Medicine
DX: I49.1 Atrial premature depolarization (principal); E03.9 Hypothyroidism, unspecified; E07.89 Other specified disorders of thyroid
CPT/HCPCS: 36415; 80053; 93005; 99283; 71046; 83735; 84443; 84484; 85025; 93010; 99285

== ENCOUNTER 2022-08-09 02:03 | Outpatient (CLI) | payer BC, SELFPAY ==
--- NOTE | 2022-08-09 07:45 | DI.MAMMO_ITS ---
Exam(s) MAMMO SCREENING EXAM: MAMMO SCREENING CLINICAL HISTORY: screening,Z12.39 TECHNIQUE: Bilateral full field digital CC and MLO mammographic images were obtained with 3D tomosyn thesis and utilizing computer aided detection (CAD). COMPARISON: Available for comparison. FINDINGS: Masses/Architectural Distortion: None seen. Microcalcifications: No suspicious pleomorphic-type are seen. Skin Thickening/Nipple Retraction: None. IMPRESSION: 1. No significant interval change with no specific features of malignancy noted. 2. Unless there is more urgent need, screening mammography is recommended, as per [employer] guidelines. BI-RADS Category 1 - Negative Breast Density - Category C - Heterogeneously dense Breast density category C or D implies that the patient has dense breast tissue. Dense breast tissue is very common and is not abnormal but dense breast tissue can make it harder to find cancer on a ma mmogram. Also, dense breast tissue may increase their breast cancer risk. This information about the result of the mammogram report was provided to the patient to raise their awareness. Use this report when you speak with the patient about their risks for breast cancer, which includes their family hist ory. At that time, you may recommend for more screening tests (Ultrasound or MRI) as they might be us eful based on their risk. A negative radiographic report should not delay biopsy if a dominant or clinically suspicious mass is present. Up to ten percent of cancers are not identified on mammography. A negative report may reinforce clinical impression. Adenosis and dense breasts may obscure an underlying neoplasm. False positive reports average 6 to 10%. Patient will receive a letter notifying them of these results.
== END 2022-08-09 02:23 ==
LOC: DI 02:05
PROVIDERS: PCP Family Medicine; Visit Provider Nurse Practitioner Women's Health
DX: Z12.31 Encounter for screening mammogram for malignant neoplasm of breast (principal)
CPT/HCPCS: 77063; 77067

== ENCOUNTER 2022-09-02 06:45 | Day surgery (SDC) | payer BC, SELFPAY ==
[2022-09-02 07:11] VITALS: BP 132/100; PULSE 70; RESP 16; TEMP 36.3; O2SAT 97
--- NOTE | 2022-09-02 07:18 | HPE_ITS ---
Assessment and Plan Assessment and plan (1) Screening for colon cancer: Status: Acute Assessment and plan: We discussed the risks and benefits of screening colonoscopy, as well as the nature of the procedure. She provided informed consent. We will proceed as planned. History of Present Illness History of Present Illness Chief Complaint: Screening colonoscoy Narrative: Mandie boston presents for colon cancer screening. Pt has never had colon cancer screening before.? They denies problems with constipation or diarrhea.? They deny any pain or difficulty with bowel movements, or rectal bleeding.? There is no family history of any colon cancer.? Pt has not had any unexplained weight loss.? Their appetite is good.? ?They deny heart, lung, or kidney problems. They are not having heartburn or indigestion. They have not had any prior colo-rectal surgery.? The patient has had a prior JAYDA.? They deny any problems with anest hesia in the past, other than PONV, which is resolved w/ zofran. PFSH All Active Problems Acquired hypothyroidism (Acute 07/12/14) Hyperlipidemia (Acute) Morbid obesity with BMI of 40.0-44.9, adult (Acute) Screening for colon cancer (Acute) Stress and adjustment reaction (Acute) Surgical History section X 2 Cholecystectomy H/O dilation and curettage S/P total hysterectomy and BSO (bilateral salpingo-oophorectomy) (~2018) Family History Mother Skin cancer Arthritis IBS (irritable bowel syndrome) Father CLL (chronic lymphocytic leukemia) Dementia Social History Smoking/Tobacco Use Status: Never Second Hand Exposure: Yes Smoking risk assessment performed?: Yes Alcohol Intake: current Alcohol Intake frequency: 0-2 drinks per day Alcohol type: wine Drug use: Never Substance use type: does not use Details: alcohol t-2 Caregiver/Support person: No Household members: spouse and children Housing: house Number of Children: 2 Communication Needs: None Education Level: master's degree Do you need help understanding health information?: Never 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 Pets and animals: Yes Pets and animals: dog(s) Sexually active: No Do you think of yourself as: straight/heterosexual Current gender identity: male and female What is your relationship status?: How often do you talk on the phone with friends or family?: three or more times per week How often do you get together with friends or relatives?: once per week How often do you attend sikh or yarsani services?: 1-3 times per year Do you belong to any clubs or organized social groups?: no Panel score (0-1 are the most socially isolated patients): 2 What type of physical activity do you participate in: walking Duration: 15-30 minutes/day Frequency: 3-4 times per week Makayla/Temple: No preference Special makayla needs: No Seatbelt use: always Helmet use: Yes Helmet use: always Drive intox or ride w/intox concrete 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 Enjoys travel. Meds Allergies and Home Medications Allergies Allergy/AdvReac Type Severity Reaction Status Date / Time latex Allergy Severe Anaphylaxsi Verified 09/02/22 07:10 s Penicillins Allergy Unknown unknown Verified 09/02/22 07:10 sulfite AdvReac Severe Headaches Verified 09/02/22 07:10 grass pollen-perennial rye, AdvReac Intermediate itching, Verified 09/02/22 07:10 standar rash Home Medications Medication Instructions Recorded Confirmed Type Tylenol 500 mg PRN 09/07/17 09/01/22 Clinic Shingrix (PF) 50 mcg/0.5 mL 0.5 ml IM ONCE #1 ea 08/21/21 Clinic intramuscular suspension, kit (varicella-zoster [id number] (PF)) atorvastatin 20 mg tablet 20 mg PO DAILY #90 tabs 08/21/21 09/01/22 Rx levothyroxine 50 mcg tablet 50 mcg PO DAILY #90 tab-caps 08/21/21 09/02/22 Rx ibuprofen-diphenhydramine citrate 2 tab PO HS 06/15/22 09/01/22 History 200 mg-38 mg tablet (Advil PM) Exam Const General: cooperative, healthy appearing and comfortable Orientation: awake and oriented x3 Eyes General: appearance normal, both eyes and all related structures Conjunctivae: conjunctivae normal Sclera: sclerae normal Resp Effort & Inspection: normal respiratory effort and able to speak in complete sentences Auscultation: clear to auscultation bilaterally Cardio Jugular venous pressure: no JVD Rate: regular rate Rhythm: regular rhythm Heart Sounds: S1 normal and S2 normal GI Inspection: non-distended Palpation: soft, no guarding, no hernias and nontender Auscultation: normal bowel sounds Skin General skin exam: normal turgor Neuro General: patient alert, patient awake and patient oriented x3 Cognition: normal cognition Extrem Right lower extremity: no edema Left lower extremity: no edema Results Last Vital Signs Temp 97.3 F L 09/02/22 07:11 Pulse 70 09/02/22 07:11 Resp 16 09/02/22 07:11 BP 132/100 H 09/02/22 07:11 Pulse Ox 97 09/02/22 07:11
--- NOTE | 2022-09-02 07:19 | W.PM.DSUDISC ---
Date of service: 09/02/22 Time of Service: 07:20 Discharge Plan Disposition Patient Disposition: Home Condition: Good Discharge Details Reason For Visit: Screening colonoscopy Attending Provider: Albino Rich Primary Care Provider: Aileen Murphy Home Meds and New Rx's Prescriptions: Continued Shingrix (PF) 50 mcg/0.5 mL suspension for reconstitution 0.5 ml IM ONCE Qty: 1 0RF atorvastatin 20 mg tablet 20 mg PO DAILY Qty: 90 3RF levothyroxine 50 mcg tablet 50 mcg PO DAILY Qty: 90 3RF tylenol 500 mg PRN 0RF Advil PM 200-38 mg Tablet 2 tab PO HS Discontinued bisacodyl [Dulcolax (bisacodyl)] 5 mg tablet,delayed release (DR/EC) 5 mg PO ONCE Qty: 4 0RF Rx Instructions: Take according to provider's instructions for colonoscopy prep. polyethylene glycol 3350 17 gram/dose powder 17 g PO ONCE Qty: 238 0RF Rx Instructions: To be taken as directed by prescriber's office for colonoscopy prep. Discharge Instructions Instructions: Diverticulosis (GEN), Diverticulosis Diet (GEN) Additional Instructions: Mandie, we were able to complete your colonoscopy today without any difficulties. The quality of your preparation was excellent. You have some very mild diverticulosis. We have attached some information here regarding general management of diverticular disease. Otherwise, I did not see any tumors polyps or anything concerning. You should consider another screening colonoscopy in 10 years to help reduce your chances of colon cancer. 1. If tolerated, consume a soft, low fiber diet for 1-2 days. 2[address] Do not drive, drink alcohol, operate machinery, make critical decisions, or do activities that require coordination or balance for 24 hours. 3. Because air was put into your colon during the procedure, expelling air from your rectum (passing gas or farting) is normal. 4. You may not have a bowel movement for 1-3 days because of the colonoscopy prep. This is normal. 5. Go directly to the emergency room if you notice any of the following: Develop chills (warm to touch), or if you have a thermometer and your temperature is above 101 Difficulty breathing or difficultly swallowing Persistent vomiting Severe abdominal pain, other than gas cramps Severe chest pain Black, tarry stools Any bleeding ? exceeding one tablespoon 6. Call your physician if the site where your intravenous was started becomes red, swollen, painful, and warm to touch. 7. Your physician has reviewed your pre-procedure medications. Please continue to take those medications as previously ordered. You will be given specific information/education regarding any changes to your medications before leaving. Activity:: Activity as Tolerated Diet:: As Tolerated Discharge Orders Discharge Orders: Discharge Order (Routine); Ordered 09/02/22 Ordered By: Albino Rich DS: Diagnosis Discharge Diagnosis (1) Screening for colon cancer: Status: Acute Asessment and Plan: Normal screening colonoscopy, I recommend the next one in 10 years.
--- NOTE | 2022-09-02 07:20 | COLE_ITS ---
Date of service: 09/02/22 Time of Service: 08:44 Colonoscopy Report Date of procedure: 09/02/22 Pre-op diagnosis general: Screening colonoscopy Post-op diagnosis procedure note: other (Diverticulosis) Procedure: Colonoscopy Surgeon: Albino iRch Anesthesia Type: General LMA/ETT Estimated blood loss (mL): 0 Pathology: none sent Complications: None Disposition: same day Indications: Madnie is a 57-year-old woman here for for screening colonoscopy. Prep: Miralax/Dulcolax Procedure Start Time: 08:13 Procedure End Time: 08:33 Retraction Time: 12 Findings: Mild sigmoid diverticulosis Procedure Description: After the induction of monitored anesthetic care, and with the patient in left lateral decubitus position, I began by performing an external anorectal exam.? Perineum and skin were normal, as was the anal verge.? There was no evidence of external hemorrhoids.? Next, I performed a digital rectal exam.? I did not appreciate any abnormal findings.? Next, I advanced a colonoscope into the rectal vault.? I performed retroflexion.? This was normal.? Using insufflation, I then advanced the colonoscope beyond the rectal folds and into the sigmoid colon before advancing towards the cecum.? The quality of the prep was ex cellent.? The scope was noted to be in the cecum by identification of the ileocecal valve and appendiceal orifice.? I then began withdrawing the colonoscope using repeated irrigation as necessary for full evaluation of the colonic mucosa. There was some occasional sigmoid diverticulosis. ?Once the scope was withdrawn to the level of the rectum, great care was taken to examine portions of the rectal folds.? Finally, the scope was withdrawn and the patient was brought to the same-day surgery recovery unit as the anesthetic wore off. ?The findings and instructions were shared with the patient prior to discharge.
[2022-09-02] MEDS: Lactated Ringers 1,000 ML 80 ML IV (07:25)
[2022-09-02 08:22] VITALS: BMI 39.6
--- NOTE | 2022-09-02 08:22 | W.ANESPRE ---
General Info Date of Service Date Performed: 09/02/22 Height: 5 ft 6 in Weight: 111.4 kg Body Mass Index (BMI): 39.6 Surgical Procedure: Operation Date: 09/02/22 08:20 Proposed Procedure Side Surgeon p Colonoscopy Albino Rich MD Actual Procedure Side Surgeon p Colonoscopy Not Applicable Albino Rich MD Pre-Op Diagnosis Post-Op Diagnosis colorectal screening Meds Allergies and Home Medications Allergies Allergy/AdvReac Type Severity Reaction Status Date / Time latex Allergy Severe Anaphylaxsi Verified 09/02/22 07:10 s Penicillins Allergy Unknown unknown Verified 09/02/22 07:10 sulfite AdvReac Severe Headaches Verified 09/02/22 07:10 grass pollen-perennial rye, AdvReac Intermediate itching, Verified 09/02/22 07:10 standar rash Home Medication Medication Instructions Recorded atorvastatin 20 mg tablet 20 mg PO DAILY #90 tabs 08/21/21 levothyroxine 50 mcg tablet 50 mcg PO DAILY #90 tab-caps 08/21/21 ibuprofen-diphenhydramine citrate 2 tab PO HS 06/15/22 200 mg-38 mg tablet (Advil PM) Current Visit Medications: Current Medications Generic Name Dose Route Start Last Admin Trade Name Freq PRN Reason Stop Dose Admin Hyoscyamine Sulfate 0.125 mg 09/02/22 07:21 Hyoscyamine 0.125 Mg Sl/Oral/Chew SL 10/02/22 07:20 DIRECTED PRN Ringer's Solution 1,000 mls @ 80 mls/hr 09/02/22 06:00 09/02/22 07:25 IV 10/01/22 23:59 80 mls/hr INFUSION SPARKLE Administration IV Miscellaneous Supplies 1 each 09/02/22 06:00 Iv Access IV 10/01/22 23:59 DIRECTED SPARKLE Ondansetron HCl 4 mg 09/02/22 07:21 Ondansetron 4 Mg/2 Ml Vial IVP 10/02/22 07:20 Q4H PRN PRN Nausea / Vomiting Sodium Chloride 0 ml 09/02/22 06:00 Normal Saline Flush 10 Ml Syr IV 10/01/22 23:59 PRN PRN Sodium Chloride 0 ml 09/02/22 06:00 Normal Saline 10 Ml Vial IJ 10/01/22 23:59 DIRECTED PRN Sterile Water 0 ml 09/02/22 06:00 Water,Injection,Sterile 10 Ml Vial IJ 10/01/22 23:59 DIRECTED PRN PFSH Active Problems Active Problems: Problem Status Onset Code Acquired hypothyroidism 07/12/14 E03.9 Hyperlipidemia E78.5 Morbid obesity with BMI of 40.0-44.9, adult E66.01, Z68.41 Screening for colon cancer Z12.11 Stress and adjustment reaction F43.29 Surgical History Surgical History section X 2 Cholecystectomy H/O dilation and curettage S/P total hysterectomy and BSO (bilateral salpingo-oophorectomy) (~2018) Tobacco Smoking/Tobacco Use Status: Never Passive smoking exposure: Yes Second hand exposure: Yes Alcohol Alcohol Intake: current Alcohol intake frequency: 0-2 drinks per day Alcohol type: wine Substance Use Substance use: Never Substance use type: does not use Details: alcohol t-2 Vital Signs and Lab Results Vital Signs Most Recent Vital Signs in EMR: Most Recent Vital Signs Temp Pulse Resp BP Pulse Ox 36.3 C L 70 16 132/100 H 97 09/02/22 07:11 09/02/22 07:11 09/02/22 07:11 09/02/22 07:11 09/02/22 07:11 Lab Results Blood Type / Crossmatch: No Data to Display Complete Blood Count: No Data to Display Complete Metabolic Panel: No Data to Display Liver Function Panel: No Data to Display Coagulation Panel: No Data to Display Cardiac Panel: No Data to Display Arterial Blood Gas: No Data to Display Venous Blood Gas: No Data to Display Pancreas Panel: No Data to Display Thyroid Panel: No Data to Display Infectious Disease: No Data to Display Blood Cultures: No Data to Display Toxicology Panel: No Data to Display Anesthesia Assessment and Plan Anesthesia History Personal History: PONV Family History: No Family History of Anesthesia Complications Exercise Tolerance Exercise Tolerance: Metabolic Equivalents>4 Pertinent Negatives Pertinent Negatives: No Symptoms of GERD, No Major Cardiovascular Symptoms or Complaints, No Major Pulmonary Symptoms or Complaints and No History of CVA/TIA Cardiac & Pulmonary Exam Cardiac Exam: Normal S1/S2 Heart Sounds Pulmonary Exam: Clear Bilateral Breath Sounds Implantable Cardiac Device Does patient have a Pacemaker or an ICD?: No Airway Exam Known Difficult Airway: No Mallampati Class: 2 Mouth Opening: Normal (> 3cm) Thyromental Distance: Greater than 3 cm Neck Range of Motion: Full ROM Neck Circumference: Normal Teeth Condition: Normal Dentition and Generalized Poor Dentition ASA Classification ASA Score: ASA 2 Emergency Case?: No NPO Status NPO Status: NPO Clears >2 hours, Solids >8 hours Anesthesia Plan Resuscitation Status: Full Code Anesthesia Technique: General Anesthesia Airway Planned: Natural Airway Monitors Used: Standard Monitors
[2022-09-02 08:37] VITALS: BP 117/74; PULSE 66; RESP 18; TEMP 36.4; O2SAT 95
[2022-09-02 09:05] VITALS: BP 135/100; PULSE 63; RESP 18; TEMP 36.6; O2SAT 98
--- NOTE | 2022-09-02 10:39 | W.ANESPOSTOP ---
Postoperative Evaluation Date, Time and Location Date Performed: 09/02/22 Time Performed: 10:39 Patient Location: Day Surgery Unit Vital Signs Most Recent Imported Vital Signs: Most Recent Vital Signs Temp Pulse Resp BP Pulse Ox 36.6 C 63 18 135/100 H 98 09/02/22 09:05 09/02/22 09:05 09/02/22 09:05 09/02/22 09:05 09/02/22 09:05 Pain Score Most Recent Pain Score: Most Recent Pain Score Pain Level 0 09/02/22 09:05 Assessment Mental Status: Awake (Alert & Oriented to Patient Baseline) Airway and Respiratory Function: Patent airway with normal (patient baseline) respiratory exam Cardiovascular Function: Hemodynamically Stable Hydration Status: Adequately Hydrated Nausea & Vomiting: No Nausea or Vomiting Pain: Pt. Denies Any Pain Peripheral Nerve Block: Patient did not receive a nerve block Postoperative Comments:: Patient seen earlier today. doing well and appropriate for discharge
== END 2022-09-02 10:00 | disposition home or self-care (01) ==
PROVIDERS: PCP Family Medicine; Visit Provider Surgery
PROC: 0DJD8ZZ Inspection of Lower Intestinal Tract, Via Natural or Artificial Opening Endoscopic (ICD-10-PCS; CPT 45378; principal; 2022-09-02 08:15)
DX: Z12.11 Encounter for screening for malignant neoplasm of colon (principal); K57.30 Diverticulosis of large intestine without perforation or abscess without bleeding
CPT/HCPCS: 45378; J2405

== ENCOUNTER 2023-11-21 03:35 | Outpatient (CLI) | payer BC, SELFPAY ==
[2023-11-21 16:59] LABS: Calculated LDL 130 mg/dL (<100); Cholesterol 219 mg/dL (<200); HDL Cholesterol 64 mg/dL (40-60); TSH (W/Ref FT4) 2.91 uIU/mL (0.36-3.74); Triglyceride 128 mg/dL (<150)
== END 2023-11-21 03:36 | disposition home or self-care (01) ==
PROVIDERS: PCP Family Medicine; Visit Provider Family Medicine
DX: Z13.6 Encounter for screening for cardiovascular disorders (principal); E78.5 Hyperlipidemia, unspecified; E03.9 Hypothyroidism, unspecified
CPT/HCPCS: 36415; 80061; 84443

== ENCOUNTER 2024-06-04 00:49 | Outpatient (CLI) | payer OTHER, SELFPAY ==
--- NOTE | 2024-06-04 07:45 | DI.MAMMO_ITS ---
Exam(s) MAMMO SCREENING EXAM: MAMMO SCREENING CLINICAL HISTORY: screening,z12.39 TECHNIQUE: Mammograms were interpreted according to the usual protocol including computer analysis w [employer] CAD system, tomosynthesis and C-view imaging. COMPARISON: 2015 through 2022 FINDINGS: The breasts are composed of scattered fibroglandular densities, Breast Density category B. No suspicious masses or suspicious microcalcifications are seen. No skin thickening or abnormal axillary lymph nodes are seen. There has been no significant change from prior exams. IMPRESSION: BI-RADS Category 1, Negative mammogram Yearly screening mammography is recommended. Breast Density - Category B, scattered fibroglandular densities. A negative radiographic report should not delay biopsy if a dominant or clinically suspicious mass is present. Up to ten percent of cancers are not identified on mammography. A negative report may reinforce clinical impression. Adenosis and dense breasts may obscure an underlying neoplasm. False positive reports average 6 to 10%. Patient will receive a letter notifying them of these results.
== END 2024-06-04 01:09 ==
PROVIDERS: PCP Family Medicine; Visit Provider Family Medicine
DX: R92.323 Mammographic fibroglandular density, bilateral breasts (principal); Z12.31 Encounter for screening mammogram for malignant neoplasm of breast
CPT/HCPCS: 77063; 77067

== ENCOUNTER 2025-02-19 00:35 | Outpatient (CLI) | payer OTHER, SELFPAY ==
[2025-02-19 12:45] LABS: TSH (W/Ref FT4) 3.07 uIU/mL (0.55-4.78)
== END 2025-02-19 00:36 | disposition home or self-care (01) ==
LOC: LBO 00:35
PROVIDERS: PCP Family Medicine; Visit Provider Family Medicine
DX: E03.9 Hypothyroidism, unspecified (principal)
CPT/HCPCS: 36415; 84443